=== PATIENT | female | born 1985 | race Caucasian/White ===

== ENCOUNTER → 2017-12-02 09:22 | Outpatient (CLI) | payer OTHER, SELFPAY ==
[2017-12-02 18:12] LABS: Chlamydia Trachomatis by PCR Negative (Negative); Neisserai gonorrhoeae by PCR Negative (Negative); Probe Check PASS; Sample Adequacy Control PASS; Specimen Processing Control PASS
== END ==
PROVIDERS: Visit Provider Obstetrics & Gynecology
DX: Z32.01 Encounter for pregnancy test, result positive (principal); Z11.3 Encounter for screening for infections with a predominantly sexual mode of transmission
CPT/HCPCS: 87491; 87591

== ENCOUNTER → 2017-12-27 16:00 | Outpatient (CLI) | payer OTHER, SELFPAY ==
[2017-12-27 18:14] LABS: Absolute Lymphocyte Count 1.59 X10^3/ul (0.83-4.51); Absolute Neutrophil Count 3.7 X10^3/uL (2.0-7.7); Basophil# 0.02 X10^3/uL; Basophil% 0.3 % (0-1); Eosinophil# 0.05 X10^3/uL; Eosinophils% 0.8 % (0-5); Hematocrit 40.2 % (37-47); Hemoglobin 13.7 g/dl (12.0-15.0); Lymphocyte # 1.59 X10^3/ul (4.0); Mean Corp Hgb Conc 34.1 g/gl (32-36); Mean Corpuscular Hgb 29.5 pg (27.0-32.0); Mean Corpuscular Volume 86.6 fL (81-99); Mean Platelet Vol. 10.2 fl (6.2-12.0); Monocyte# 0.56 X10^3/uL; Monocyte% 9.5 % (0-10); Neutrophil # 3.66 X10^3/uL (2.7-7.7); Neutrophil % 62.2 % (47-70); Platelet Count 200 K/mm3 (150-450); RBC Distribution Width SD 39.9 fl (35.1-43.9); Red Blood Count 4.64 M/mm3 (4.2-5.4); White Blood Count 5.9 K/mm3 (4.4-11.0)
[2017-12-27 18:28] LABS: Color, Urine Yellow (Yellow); Glucose, Dipstick Normal (Normal); Ketone-Dipstick Negative (Negative); Leukocyte Esterase-Dipstick 25 /ul (Negative); Nitrite-Dipstick Negative (Negative); Occult Blood-Urine 10 /ul (Negative); Protein-Dipstick Negative (Negative); Specific Gravity, Urine 1.025 (1.002-1.030); Urine Bilirubin Dipstick Negative (Negative); Urine Clarity Sl. Cloudy (Clear); Urine Urobilinogen Normal (Normal)
[2017-12-27 18:29] LABS: POSITIVE COUNT NO; POSITIVE DIFFERENTIAL NO; POSITIVE MORPHOLOGY NO
[2017-12-27 18:34] LABS: Thyroid Stim Hormone (TSH) 2.19 uIU/mL (0.358-3.74)
[2017-12-27 18:53] LABS: Amphetamine Urine VISTA NEGATIVE (<1000 ng/mL); Barbiturate Urine VISTA NEGATIVE (< 200 ng/mL); Benzodiazepine Urine VISTA NEGATIVE (< 200 ng/mL); Cocaine Urine VISTA NEGATIVE (< 300 ng/mL); Ecstacy Urine VISTA NEGATIVE (< 500 ng/mL); Methadone Urine VISTA NEGATIVE (< 300 ng/mL); PCP Urine VISTA NEGATIVE (< 25 ng/mL); THC Urine VISTA NEGATIVE (< 50 ng/mL); Vista UDS pH Range 5
[2017-12-27 19:13] LABS: HIV - WCH Non-Reactive (Nonreactive); Rubella IgG 16.4 IU/mL; Vitamin D,25 Hydroxy 29.5 ng/mL (29.95-100.01)
[2017-12-27 19:19] LABS: COTININE Drug Screen Negative (<200 ng/mL)
[2017-12-29 11:25] LABS: HEPATITIS B SURFACE AG Negative (Negative); Hep C Antibodies 0.1 s/co ratio (0.0-0.9); Toxoplasma Gondii IgG < 3.0 IU/mL (0.0-7.1)
[2017-12-31 02:29] LABS: Prenatal RPR NONREACTIVE (NONREACTIVE)
== END ==
PROVIDERS: Visit Provider Obstetrics & Gynecology
DX: Z34.81 Encounter for supervision of other normal pregnancy, first trimester (principal)
CPT/HCPCS: 36415; 80307; 81002; 82306; 84443; 85025; 86703; 86762; 86777; 86803; 87340

== ENCOUNTER → 2018-04-25 16:35 | Outpatient (CLI) | payer OTHER, SELFPAY ==
[2018-04-25 17:57] LABS: Hematocrit 33.6 % (37-47); Mean Corp Hgb Conc 32.7 g/gl (32-36); Mean Corpuscular Hgb 29.7 pg (27.0-32.0); Mean Corpuscular Volume 90.8 fL (81-99); Mean Platelet Vol. 9.4 fl (6.2-12.0); Platelet Count 189 K/mm3 (150-450); RBC Distribution Width CV 14.6 % (11.6-14.6); RBC Distribution Width SD 48.3 fl (35.1-43.9); White Blood Count 7.6 K/mm3 (4.4-11.0)
[2018-04-25 18:00] LABS: Glucose Challenge Gest 1H 50g 95 mg/dL (70-140)
[2018-04-25 18:20] LABS: Scan Indicated on CBC? Y/N NO
== END ==
PROVIDERS: Visit Provider Obstetrics & Gynecology
DX: Z34.82 Encounter for supervision of other normal pregnancy, second trimester (principal)
CPT/HCPCS: 82950; 85027

== ENCOUNTER → 2018-07-07 17:00 | Outpatient (CLI) | payer OTHER, SELFPAY | PROVIDERS: Visit Provider Obstetrics & Gynecology | DX: Z36.85 Encounter for antenatal screening for Streptococcus B (principal) | CPT/HCPCS: 87081 ==

== ENCOUNTER 2018-07-25 12:00 | Inpatient (IN) | payer OTHER, SELFPAY ==
[2018-07-25] VITALS (18 sets, daily range): BP systolic 106–129; BP diastolic 49–81; PULSE 71–92; RESP 14–20; TEMP 36.1–37.1; O2SAT 97–100; BMI 26.8
--- NOTE | 2018-07-25 | FALS_PTH ---
PATIENT: CECE SCOTT LOC: [facility] U#:[id number] AGE/SX: 33/F ROOM: WP006 RE07/25/[address]: Dr. Yanet Aaron MD : [id number] BED: 1 DIS: 07/27/2018 SPEC #: [id number] RECD: 07/25/18 16:58 STATUS: CLEMENTE SEDA #: [id number] HARVEY: 07/25/18 00:[address]: Yanet Canseco DEPT: SURGICAL PATHOLOGY RECD BY: Donny Dewitt Tissues: Fallopian tube Procedures: Surgery Specimen Level II HEADER OPERATION: Tubal ligation PRE-OP DIAGNOSIS: Desired sterilization TISSUE SUBMITTED: Fallopian tubes, suture in left tube MICROSCOPIC DIAGNOSIS Right and left fallopian tubes, bilateral partial salpingectomies: Two complete segments of fallopian tubes with no pathologic change. AM:pamela 07/27/18 MICROSCOPIC DESCRIPTION Slides are reviewed. GROSS DESCRIPTION Received is one container labeled with the patient's name and not further designated. The specimen consists of a tubular segment of mancia soft tissue identified as right and measures 2 cm in length and 0.6 cm in diameter. Also present in the container is a fallopian tube including fimbrial end measuring 4.5 cm in length and 0.7 cm in diameter. This fallopian tube is identified by a suture indicating as left. The entire specimen is submitted in two cassettes as follows: 1 - right fallopian tube to be sectioned at the time of embedding, 2 - left fallopian tube. / ABDIRASHID:pamela 07/26/18 TC:4 CPT: 78646 x2
[2018-07-25] MEDS: Lactated Ringers 1,000 ML 999 ML IV (12:40)
[2018-07-25 13:02] LABS: Absolute Lymphocyte Count 1.33 X10^3/ul (0.83-4.51); Absolute Neutrophil Count 6.9 X10^3/uL (2.0-7.7); Basophil# 0.01 X10^3/uL; Basophil% 0.1 % (0-1); Eosinophil# 0.02 X10^3/uL; Eosinophils% 0.2 % (0-5); Hematocrit 35.8 % (37-47); Hemoglobin 11.8 g/dl (12.0-15.0); Lymphocyte # 1.33 X10^3/ul (4.0); Mean Corpuscular Hgb 28.7 pg (27.0-32.0); Mean Corpuscular Volume 87.1 fL (81-99); Mean Platelet Vol. 10.3 fl (6.2-12.0); Monocyte# 1.15 X10^3/uL; Monocyte% 12.1 % (0-10); Neutrophil # 6.92 X10^3/uL (2.7-7.7); Neutrophil % 73.2 % (47-70); Platelet Count 144 K/mm3 (150-450); RBC Distribution Width CV 14.7 % (11.6-14.6); RBC Distribution Width SD 46.9 fl (35.1-43.9); Red Blood Count 4.11 M/mm3 (4.2-5.4); White Blood Count 9.5 K/mm3 (4.4-11.0)
[2018-07-25 13:09] LABS: International Normalized Ratio 0.9; Partial Thromboplast Time 22.1 Seconds (24.1-36.2); Prothrombin Time (Protime)PT. 12.4 SECONDS (11.7-14.9)
[2018-07-25 13:15] LABS: POSITIVE COUNT NO; POSITIVE DIFFERENTIAL NO; POSITIVE MORPHOLOGY NO
[2018-07-25] MEDS: Lactated Ringers 1,000 ML 150 ML IV (13:50)
--- NOTE | 2018-07-25 13:58 | PCM.HP.OB ---
- Problem List (1) SROM (spontaneous rupture of membranes) Status: Acute (2) 39 weeks gestation of Status: Acute History Date of Admission: 07/25/18 Final CHRISTELLE: 07/28/18 Final CHRISTELLE Source: US <20 weeks Gestational age: 39 Weeks and 4 Days History of this : This is a 33 year-old, G [3], P [2002], at 39 4/7 weeks gestational age sent from office for SROM. Patient reports rupture of membranes approximately 6-7 am this morning, clear fluid. Office exam confirmed positive nitrazine, pool and fern. Surgical History: Surgical History (Last Updated 07/25/18 @ 13:59 by Yanet Turpin MD) H/O LEEP Z98.890 H/O: Z98.891 2014 Allergies No Known Allergies Allergy (Verified 06/22/14 10:13) Home Medications: Home Medications Vits [Prenatabs FA] 1 tablet PO DAILY 06/22/14 Smoking Status: Never smoker Alcohol: None Heart Tracin, moderate variability, + accelerations, no decelerations TOCO Analysis: 3-4/10 min History Past Pregnancies: Past Pregnancies Delivery Date Name GA/Weeks Outcome Route Weight Infant Gender Labor Length Anesthesia Delivery Location Provider FO 07/2012 38 Living C/S 7lb3oz M 0 Epidural [facility] 06/2014 39 Living C/S 7lb5oz F 0 Spinal [facility] Labs: Mom's Problem List Problem Status Onset Code SROM (spontaneous rupture of membranes) Acute 39 weeks gestation of Acute Z3A.39 Mom's Labs & Results 07/25/18 07/25/18 07/25/18 12:35 12:35 12:35 WBC 9.5 RBC 4.11 L Hgb 11.8 L Hct 35.8 L MCV 87.1 MCH 28.7 MCHC 33.0 RDW 14.7 H RDW Differential 46.9 H Plt Count 144 L MPV 10.3 Immature Gran % (Auto) 0.400 Neut % (Auto) 73.2 H Lymph % (Auto) 14.0 L [place] % (Auto) 12.1 H Eos % (Auto) 0.2 Baso % (Auto) 0.1 Absolute Neuts (auto) 6.9 Absolute Lymphs (auto) 1.33 Total Counted Not Reportable PT 12.4 INR 0.9 APTT 22.1 L Blood Type Pending Antibody Screen Pending Course Did the patient receive Yes care? Labs Blood Type: O RH: POSITIVE RPR/VDRL/Syphilis Nonreactive Rubella status Immune HbSAg Negative Date Done: 12/27/17 Chlamydia Negative Gonorrhea Negative HIV/AIDS Non-Reactive Group B Strep: Negative Current Obstetrical History Gestational Diabetes No Incompetent Cervix No Infertility No IUGR No Macrosomia No Hypertension/Pre-eclampsia No Placenta Previa/Abruption No PTL/PROM No Uterine anomaly No Oligohydramnios No Polyhydramnios No Multiple gestation No Past Medical History Asthma No Diabetes No Hypertension No Heart disease No Mitral valve prolapse No Neurologic/Seizure disorder/ No Migraines Kidney disease No Liver disease No Varicosities No Clotting disorders/Hx of DVT No Thyroid Dysfunction No Other medical diseases No Psychiatric disorders No Major trauma No Abnormal PAP smear Yes Sleep apnea No Mammogram in the last 2 years No Social History Marital Status: Alleged father Nabeel Hx Smoking No Smoking Status Never smoker Expected Delivery Method: ELIZABETH Section Number of Visits: 13 Review of Systems Cardiovascular: Denies: Chest Pain Respiratory: Denies: Shortness of Breath Gastrointestinal: Denies: Abdominal Pain, Nausea, Vomiting Gynecological: Denies: Vaginal bleeding Physical Exam Vitals: AVSS General: Alert, Oriented x3, Cooperative, No apparent distress HEENT: Atraumatic, Normocephalic Cardiovascular: Regular rate, Regular Rhythm, Normal S1, Normal S2 Lungs: Clear to auscultation, Normal air movement, No rhonchi, No wheeze, No rales Abdomen: Soft, Non Tender, Non-Distended, Gravid Extremities:: No edema Neurological: Neuro grossly intact [employer]ER: Normal external genitalia Estimated gestational size: Appropriate for gestational size Presentation: Cephalic Assessment/Plan All Active Problems SROM (spontaneous rupture of membranes) (Acute) 39 weeks gestation of (Acute) This is a 33 year-old, G [3], P [2], at 39 4/7 weeks gestational age with SROM, Cat I FHR. -NPO -Proceed with repeat section -Sterilization desired -Consents previously signed, again reviewed
[2018-07-25] MEDS: Sodium Citrate/Citric Acid 30 ML UDC PO (14:01)
[2018-07-25] MEDS: Cefazolin 2 GM in 0.9% Normal Saline 100 ML IV (14:15)
[2018-07-25] MEDS: Oxytocin 30 units/NS 500 ml 30 UNITS/500 ML IV.SOLN 167 UNITS IV (14:41)
[2018-07-25] MEDS: Ketorolac 30 MG/ML Syringe IV ×2 (15:00→21:28)
--- NOTE | 2018-07-25 15:19 | PCM.OPRPT ---
Problem List (1) SROM (spontaneous rupture of membranes) Status: Acute (2) 39 weeks gestation of Status: Acute (3) delivery delivered Status: Acute (4) Sterilization Status: Acute Delivery Classification: ELIZABETH Final CHRISTELLE: 07/28/18 Gestational age: 39 Weeks and 4 Days Indications: 33yo @ 39 4/7wga with history of 2 prior sections admitted with SROM for repeat section. Patient also desired sterilization procedure. Consents were reviewed including r/b/i/a sterilization, as well as r/b/i. Indications for : Repeat Elective , Desires elective sterilization Description of Procedure: The patient was taken to the operating room and spinal analgesia was administered. She is placed in a dorsal supine position with left lateral tilt. The perineum and abdomen were prepped and draped in sterile fashion. And the spinal was found to be adequate. A Pfannenstiel incision was made using a scalpel and brought down to incise the subcutaneous tissue and rectus fascia at the midline. Subcutaneous tissue was bluntly dissected off the fascia laterally. The fascial incision was dissected laterally and cephalad using curved Matias scissors. The superior leaflet of the rectus fascia was grasped using Gallo clamps and bluntly dissected and sharply dissected from the underlying rectus muscle. In a similar fashion the inferior rectus fascia was dissected from the underlying muscle. The rectus muscles were bluntly at the midline. The peritoneum was identified and entered [sharply]. The bladder blade was placed into the abdomen and the vesicouterine peritoneal fold identified. The fold was incised and a bladder flap created. Bladder blade was then repositioned to the abdomen. A low transverse hysterotomy was made using the [Metzenbaum scissors] to level of the membranes. The hysterotomy was extended bluntly cephalad and caudad. The membranes were then ruptured revealing clear fluid. The head was elevated and brought to the level of the hysterotomy, however there was tissue dystocia due to scarred maternal rectus abdominus and peritonum. Thus the right rectus was partially transected using the bandage scissore and the subsequently delivered with ease revealing a vigorous [male] . The cord was doubly clamped and cut after 30 seconds. The infant was passed to awaiting [nursery personnel]. The placenta was [expressed] from the uterus and appeared intact on inspection. The uterus was exteriorized and cleared of debris. The hysterotomy was then repaired using 0 Vicryl running lock suture. Attention turned to the right adnexa and the ampullary tube grasped using a Mike clamp. Defect was created in avascular portion of the mesosalpinx and 0 plain gut was used to ligate the ampullary tubal segment proximally and distally. An approximately 2 cm intervening tubal segment was excised. Attention was turned to the left adnexa, and tubal adnexal adhesions were bluntly and sharply dissected. Due to bleeding following the dissection, a distal salpingectomy was performed extending to the ampullary tube. The tubal pedicles were ligated using 0 plain gut with good hemostasis. The bladder blade was removed the uterus and adnexa were returned to the abdomen. Anatomy again inspected and was hemostatic. The anterior cul-de-sac was cleared of debris. An omental adhesion was clamped cut and suture ligated at each end. The peritoneum and rectus muscles were reapproximated using 2-0 Vicryl running suture. The rectus fascia was closed using 0 Vicryl running suture. The subcutaneous tissue was sponge irrigated and small capillary bleeding controlled using the Bovie device. The subcutaneous tissue was reapproximated using 2-0 Vicryl. The skin was closed using 4-0 Monocryl subcuticularly by the LINE DANCER under my supervision. A Mepilex occlusive dressing was placed over the incision. The fundus was firm. The patient was then transferred to the recovery room without complication. Sponge, instrument, and needle counts were correct ?2. Amniotic Membrane Rupture Type: Spontaneous Amniotic Fluid Description: Clear Placenta Disposition: [facility] Drain: Alas to straight drain Cord Entanglement: Around neck x 1, loose Nuchal Cord Compression: Without compression Cord Vessel Description: 3 Vessels Esitmated Blood Loss (ml): 500 Infant Gender: Male (1 minute): 8 (5 minute): 9 Delayed cord clamping: Yes Pre-op Antibiotic Given: Ancef 2 grams IV x1 Pt instructed on risks of surgery: Bleeding, Infection, Need for Future C-Sections, Failure Rate of 1 to 2%, Injury to surrounding structure(s) including bowel and bladder, Availability of other non-permanent control options Complications: None - Admit VTE Documentation VTE Present on Admission: No VTE Mechan Device Prophylaxis: SCD's VTE Pharm Prophylaxis ordered?: No
[2018-07-25] MEDS: Lactated Ringers 1,000 ML 100 ML IV ×2 (15:35→19:50)
--- NOTE | 2018-07-25 15:36 | DCINST_ITS ---
Discharge Diet: No Restrictions Discharge Activity: Return to Normal Activity, May not drive while taking narcotic pain medications., May Shower, May Take a Tub Bath May resume sexual activity in: 4-6 weeks Lifting Restrictions: 10 lb Suture Line Care: Avoid Pulling/Pushing Cleanse incision/area with: Soap & Water Additional Instructions: If you experience any of the following, contact your healthcare provider. * Bleeding that soaks a pad every hour for 2 hours * Fever 100.4 or higher * Unrelieved incision or abdominal pain * Swelling, redness, discharge or bleeding from your incision or episiotomy site * Your incision begins to separate * Problems urinating (including inability to urinate or burning while urinating). * Visual changes * Severe headache * Flu-like symptoms * Pain or redness in one of both of your breasts * Pain, warmth, tenderness or swelling in your legs, especially the calf area * Frequent nausea and vomiting * Symptoms of depression or anxiety If you experience any of the following, call 911 or go to the nearest Emergency Room. * Chest pain * Problems breathing * Seizure activity * Partial or complete paralysis of a body part, slurred speech, weakness or drooping of the face, or a sudden inability to walk or hold your balance Allergies/Adverse Reactions: Allergies No Known Allergies Allergy (Verified 06/22/14 10:13) Medications to take at Discharge Vits [Prenatabs FA ] 1 tablet PO DAILY 06/22/14 Docusate Sodium [Colace] 100 mg PO BID PRN PRN #60 capsule 07/25/18 Ibuprofen 600 mg PO TID PRN #30 tablet 07/25/18 Oxycodone [Oxyir] 5 mg PO Q6H PRN PRN 7 Days #28 tablet 07/25/18 The following prescriptions were given: Oxycodone [Oxyir] 5 mg PO Q6H PRN PRN 7 Days #28 tablet PRN Reason: Severe Pain (-01/26) Docusate Sodium [Colace] 100 mg PO BID PRN PRN #60 capsule PRN Reason: Constipation Ibuprofen 600 mg PO TID PRN #30 tablet PRN Reason: Pain Follow-Up: Call to make an appointment with your doctor for an incision check in 1-2 weeks. You will also need a 6 week post- follow up appointment. Test results from this visit will be discussed in further detail at your follow- up appointment, if applicable. Please Follow Up With: Brigida Carter MD When: 1-2 weeks
[2018-07-25] MEDS: Methylergonovine 0.2 MG/ML Ampul IM ×2 (17:16→17:46)
[2018-07-25] MEDS: Oxytocin 30 units/NS 500 ml 30 UNITS/500 ML IV.SOLN 250 UNITS IV (17:45)
[2018-07-25] MEDS: Ondansetron 4 MG/2 ML Vial IV (17:46)
[2018-07-25] MEDS: 0.9% Saline Lock 10 ML Syringe IV ×3 (19:05→21:29)
[2018-07-25 19:56] LABS: Hemoglobin 11.3 g/dl (12.0-15.0); Mean Corp Hgb Conc 33.2 g/gl (32-36); Mean Corpuscular Hgb 29.2 pg (27.0-32.0); Mean Corpuscular Volume 87.9 fL (81-99); Mean Platelet Vol. 9.4 fl (6.2-12.0); Platelet Count 135 K/mm3 (150-450); RBC Distribution Width CV 14.8 % (11.6-14.6); RBC Distribution Width SD 47.4 fl (35.1-43.9); Red Blood Count 3.87 M/mm3 (4.2-5.4); Scan Indicated on CBC? Y/N NO; White Blood Count 15.5 K/mm3 (4.4-11.0)
[2018-07-26] VITALS (10 sets, daily range): BP systolic 93–104; BP diastolic 46–63; PULSE 75–88; RESP 16–18; TEMP 36.6–37.4; O2SAT 95–99
[2018-07-26] MEDS: Ketorolac 30 MG/ML Syringe IV ×3 (03:05→15:10)
[2018-07-26] MEDS: Lactated Ringers 1,000 ML 100 ML IV (05:47)
[2018-07-26 06:11] LABS: Hematocrit 27.6 % (37-47); Mean Corp Hgb Conc 32.6 g/gl (32-36); Mean Corpuscular Hgb 28.9 pg (27.0-32.0); Mean Corpuscular Volume 88.7 fL (81-99); Mean Platelet Vol. 9.2 fl (6.2-12.0); Platelet Count 107 K/mm3 (150-450); RBC Distribution Width SD 48.6 fl (35.1-43.9); Red Blood Count 3.11 M/mm3 (4.2-5.4); White Blood Count 8.8 K/mm3 (4.4-11.0)
[2018-07-26 06:20] LABS: Scan Indicated on CBC? Y/N NO
--- NOTE | 2018-07-26 08:01 | PCM.PN.OB ---
Patient Problems: Active and Suspected Problems SROM (spontaneous rupture of membranes) (Acute) 39 weeks gestation of (Acute) delivery delivered (Acute) Sterilization (Acute) Subjective: POD#1 Repeat C/S and BPS Doing well Pain control adequate. Nursing baby. Would like to her her secondary IV out (placed in L antecubital inconvenient / uncomfortable with nursing and holding baby. ) No concerns voiced otherwise. - Physical Exam General: Alert, Oriented x3, Cooperative HEENT: Atraumatic Oral: Moist Mucosa Neck: Supple Abdomen: Soft - Fundus firm NT at umbilicus. Skin: Incision - Mepilex CDI and less than 1 cm spot of shadow drainage marked with pen. No extension noted. Neurological: Cranial nerves II-XII grossly intact Psych/Mental Status: Normal Affect Vital Signs Temp Pulse Resp BP Pulse Ox 98.5 F 87 16 98/56 L 96 07/26/18 07:19 07/26/18 07:19 07/26/18 07:19 07/26/18 07:19 07/26/18 04:45 Oxygen Delivery Method Room Air Weight: 79.923 kg Body Mass Index (BMI) 26.8 Intake and Output for Last 24 Hours 07/24/18 07/25/18 07/26/18 23:59 23:59 23:59 Intake Total 3160 / 3160 1105 / 1105 Output Total 2470 / 2470 650 / 650 Balance 690 / 690 455 / 455 Laboratory Tests Past 24 Hrs 07/25/18 07/25/18 07/25/18 12:35 12:35 12:35 WBC 9.5 RBC 4.11 L Hgb 11.8 L Hct 35.8 L MCV 87.1 MCH 28.7 MCHC 33.0 RDW 14.7 H RDW Differential 46.9 H Plt Count 144 L MPV 10.3 Immature Gran % (Auto) 0.400 Neut % (Auto) 73.2 H Lymph % (Auto) 14.0 L [place] % (Auto) 12.1 H Eos % (Auto) 0.2 Baso % (Auto) 0.1 Absolute Neuts (auto) 6.9 Absolute Lymphs (auto) 1.33 Total Counted Not Reportable PT 12.4 INR 0.9 APTT 22.1 L Blood Type O POSITIVE Antibody Screen NEGATIVE 07/25/18 07/26/18 19:45 05:55 WBC 15.5 H 8.8 RBC 3.87 L 3.11 L Hgb 11.3 L 9.0 L Hct 34.0 L 27.6 L MCV 87.9 88.7 MCH 29.2 28.9 MCHC 33.2 32.6 RDW 14.8 H 15.0 H RDW Differential 47.4 H 48.6 H Plt Count 135 L 107 L MPV 9.4 9.2 Immature Gran % (Auto) Neut % (Auto) Lymph % (Auto) [place] % (Auto) Eos % (Auto) Baso % (Auto) Absolute Neuts (auto) Absolute Lymphs (auto) Total Counted PT INR APTT Blood Type Antibody Screen Medical Necessity - Tobacco Use Smoking Status: Never smoker Assessment/Plan All Active Problems SROM (spontaneous rupture of membranes) (Acute) 39 weeks gestation of (Acute) delivery delivered (Acute) Sterilization (Acute) POD#1 Repeat C/S at 39 wk EGA SROM. BPS also Stable postop. Acute blood loss anemia. Start iron daily. Inc diet and activity as tolerated. D/C Alas today for voiding trial. D/C secondary IV line @ L antecubital. Clinically stable and not needed. Begin po meds.
[2018-07-26] MEDS: Senna/Docusate Sodium 1 Tablet PO (09:09)
[2018-07-26] MEDS: Prenatal Vits Tablet 1 TABLET PO (09:09)
--- NOTE | 2018-07-26 13:16 | NURSING ---
student's charting reviewed
[2018-07-26] MEDS: 0.9% Saline Lock 10 ML Syringe IV ×2 (15:10→21:02)
--- NOTE | 2018-07-26 16:13 | NURSING ---
this RN reviewed student nurses' charting for vital signs and shift assessment. fundal check charted correctly. no follow up needed with documented vital signs. will continue to monitor.
[2018-07-26] MEDS: Ferrous Gluconate 324 MG Tablet PO (17:06)
[2018-07-26] MEDS: Ibuprofen 600 MG Tablet PO (21:10)
[2018-07-27 02:30] VITALS: BP 93/54; PULSE 80; RESP 16; TEMP 36.1; O2SAT 96
[2018-07-27] MEDS: Ibuprofen 600 MG Tablet PO ×2 (03:16→12:14)
[2018-07-27] MEDS: Senna/Docusate Sodium 1 Tablet PO (06:40)
[2018-07-27] MEDS: Prenatal Vits Tablet 1 TABLET PO (08:31)
[2018-07-27] MEDS: Ferrous Gluconate 324 MG Tablet PO (08:32)
[2018-07-27 08:39] VITALS: BP 98/47; PULSE 80; RESP 16; TEMP 36.6
--- NOTE | 2018-07-27 12:26 | PCM.PN.OB ---
Patient Problems: Active and Suspected Problems SROM (spontaneous rupture of membranes) (Acute) 39 weeks gestation of (Acute) delivery delivered (Acute) Sterilization (Acute) Subjective: POD#2 repeat C/S and BPS Doing well. Would like to go home today. - Physical Exam General: Alert, Oriented x3, Cooperative, No apparent distress HEENT: Atraumatic Neck: Supple Neurological: Cranial nerves II-XII grossly intact Psych/Mental Status: Normal Affect Vital Signs Temp Pulse Resp BP Pulse Ox 97.8 F 80 16 98/47 L 96 07/27/18 08:39 07/27/18 08:39 07/27/18 08:39 07/27/18 08:39 07/27/18 02:30 Oxygen Delivery Method Room Air Weight: 79.923 kg Body Mass Index (BMI) 26.8 Intake and Output for Last 24 Hours 0407/26/18 07/27/18 23:59 23:59 23:59 Intake Total 3160 / 3160 1105 / 1105 Output Total 2470 / 2470 4100 / 4100 Balance 690 / 690 -2995 / -2995 Medical Necessity - Tobacco Use Smoking Status: Never smoker Assessment/Plan All Active Problems SROM (spontaneous rupture of membranes) (Acute) 39 weeks gestation of (Acute) delivery delivered (Acute) Sterilization (Acute) POD#2 Repeat C/S at 39 wk EGA SROM. BPS also Stable postop. Requests dischg home today. RTO in 2 wk for postop incision check.
[2018-07-27 14:19] LABS: Pathology Specimen OB SEE PATHOLOGY REPORT
[2018-07-27 14:20] VITALS: BP 110/70; PULSE 88; RESP 16; TEMP 36.9
== END 2018-07-27 14:20 | disposition home or self-care (01) | DRG 784 ==
PROVIDERS: Obstetrics & Gynecology; Admitting Provider Obstetrics & Gynecology; Referring Provider Obstetrics & Gynecology; Visit Provider Obstetrics & Gynecology
DX: O34.211 Maternal care for low transverse scar from previous cesarean delivery (principal); D62 Acute posthemorrhagic anemia; Z3A.39 39 weeks gestation of pregnancy; Z37.0 Single live birth; O42.02 Full-term premature rupture of membranes, onset of labor within 24 hours of rupture; O99.613 Diseases of the digestive system complicating pregnancy, third trimester; K21.9 Gastro-esophageal reflux disease without esophagitis; O69.81X0 Labor and delivery complicated by cord around neck, without compression, not applicable or unspecified; O90.81 Anemia of the puerperium; Z30.2 Encounter for sterilization
CPT/HCPCS: 59050; 85025; 85027; 85610; 85730; 86850; 86900; 88302; 99218; J7120; A4216; G0378; J2405

== ENCOUNTER → 2019-11-07 | Outpatient (CLI) | payer OTHER, SELFPAY ==
[2018-07-25 12:32] VITALS: BMI 26.8
[2019-11-10 03:46] LABS: HPV APTIMA, High Risk Negative (Negative)
== END | disposition home or self-care (01) ==
LOC: LABSPEC 10:26
PROVIDERS: Visit Provider Obstetrics & Gynecology
DX: Z12.4 Encounter for screening for malignant neoplasm of cervix (principal)
CPT/HCPCS: 87624; 88175; G0145